=== PATIENT | male | born 1950 ===

== ENCOUNTER 2017-03-01 18:35 | Emergency (ER) | payer SELFPAY ==
[2017-03-01] MEDS ORDERED: Albuterol-Ipratrop 3 mg / 0.5 (3 ml) UD IH STA (19:05)
--- NOTE | 2017-03-01 19:10 | ED PDOC ---
Arrival/HPI - General Chief Complaint: Shortness Of Breath Time Seen by Provider: 03/01/17 18:56 - History of Present Illness Narrative History of Present Illness (Text): 66 y/o M c PMHx HTN, asthma p/w dyspnea x 4 days. Patient recently flew from [facility] and the day after arrival, began having cough and congestion. He was seen by Dr. Toledo who started patient on Azithromycin and albuterol nebulizer but it did not improve so medications were discontinued. The patient began having shortness of breath the next day, prompting his visit to ED. Patient with subjective fever. Cough is productive of small amount of white sputum. Pain in midchest, sharp, only when coughing. Deep breath causes coughing. Earlier today, patient also had coughing fit, attempted to stand up, and lost consciousness shortly. Patient has had syncope in past. Denies leg swelling, abdominal pain. Past Medical History - Travel History If Yes, travel location?: [place], [place] Family/Social History Family/Social History: No Known Family HX Allergies/Home Meds Allergies/Adverse Reactions: Allergies No Known Allergies Allergy (Verified 03/01/17 18:43) Review of Systems - Physician Review All systems were reviewed & negative as marked: Yes - Review of Systems Gastrointestinal: absent: Abdominal Pain, Vomiting Neurological: absent: Headache Physical Exam - Physical Exam Narrative Physical Exam (Text): Gen: NAD Head: NC/AT Eyes: EOMI ENT: MMM Neck: Supple Chest: No tenderness Heart: Regular rate Lungs: CTA b/l. Pulse oximetry 92-94% on room air. Abdomen: Soft, nontender Extremities: No swelling or tenderness Skin: No rash Neuro: Alert, no focal deficit Vital Signs Temp Pulse Resp BP Pulse Ox 03/01/17 18:43 100.3 F H 76 16 142/81 97 Medical Decision Making ED Course and Treatment: Differential of dyspnea includes influenza, other viral illness, PNA, asthma exacerbation, PE. Plan: Influenza swab, duoneb treatment, CXR, CTA. EKG NSR 76 bpm, no ST/T wave changes. 03/01/17 19:52 Pending all results. Will sign out to ED night team at change of shift. - RAD Interpretation Radiology Orders: 03/01/17 19:05 ANGIO CHEST PE PROTOCOL [CT] Stat - Medication Orders Current Medication Orders: Discontinued Medications Albuterol/Ipratropium (Duoneb 3 Mg/0.5 Mg (3 Ml) Ud) 3 ml IH STAT STA Stop: 03/01/17 19:06 Disposition/Present on Arrival - Present on Arrival Any Indicators Present on Arrival: No - Disposition Have Diagnosis and Disposition been Completed?: No Diagnosis: Dyspnea Disposition Time: 19:53 Condition: FAIR Forms: [employer] ([employer])
[2017-03-01] MEDS ORDERED: Albuterol-Ipratrop 3 mg / 0.5 (3 ml) UD ONE ×2 (20:06→23:19)
[2017-03-01 20:12] LABS: BASO % 0.5 % (0.0-2.0); EOS # 0.1 K/uL (0.0-0.7); EOS % 0.7 % (0.0-4.0); HEMATOCRIT 42.8 % (35.0-51.0); LYMPH # 1.3 K/uL (1.0-4.3); MEAN CELL VOLUME 88.9 fl (80.0-94.0); MEAN CORPUSCULAR HEMOGLOBIN 30.3 pg (27.0-31.0); MEAN CORPUSCULAR HGB CONC 34.1 g/dL (33.0-37.0); MEAN PLATELET VOLUME 7.6 fl (7.2-11.7); MONO # 0.9 K/uL (0.0-0.8); MONO % 10.9 % (0.0-10.0); NEUT # 5.7 K/uL (1.8-7.0); NEUT % 71.9 % (50.0-75.0); NRBC % 0.2 % (0.0-0.0); RED CELL DISTRIBUTION WIDTH 12.6 % (11.5-14.5); WHITE BLOOD COUNT 7.9 K/uL (4.8-10.8)
--- NOTE | 2017-03-01 20:27 | ED PDOC ---
- Laboratory Results Result Diagrams: 03/01/17 19:27 03/01/17 19:27 - ECG O2 Sat by Pulse Oximetry: 97 (RA) Pulse Ox Interpretation: Normal Medical Decision Making Medical Decision Making: Time: 1999 --Patient endorsed from Dr. Bronson to me. --Pending work-up and reevaluation. Time: 2024 --Tylenol 650 mg PO --Influenza: Negative Time: 2147 --Angio CT FINDINGS: Limitations: Motion artifact - mild. Pulmonary arteries: No definite pulmonary embolism. No definite emboli Aorta: Mild atherosclerotic disease. No aneurysm. Lungs: Minimal atelectasis. No consolidation. Pleural space: No significant effusion. No pneumothorax. Heart: Borderline cardiomegaly. No significant pericardial effusion. Coronary artery calcifications. Bones/joints: No acute fracture. Soft tissues: Minimal gynecomastia. Lymph nodes: No pathologically enlarged lymph nodes. Liver: Fatty infiltration. IMPRESSION: 1. No definite CT evidence of pulmonary embolism. 2. Incidental/non-acute findings are described above. Time 2220 --Toradol 30 mg IV Time: 2254 Patient is feeling better, is medically stable, and requires no further treatment in the ED at this time. Patient will be discharged home. Counseling was provided and all questions were answered regarding diagnosis and need for follow up with referred clinics. There is agreement to discharge plan. Return if symptoms persist or worsen. Clinical Impression: Viral illness Scribe~Attestation: Documented by Bettye Menendez, acting as a scribe for Gilson Oneil MD. Provider Scribe~Attestation: All medical record entries made by the Scribe were at my direction and personally dictated by me. I have reviewed the chart and agree that the record accurately reflects my personal performance of the history, physical exam, medical decision making, and the department course for this patient. I have also personally directed, reviewed, and agree with the discharge instructions and disposition. Disposition Counseled Patient/Family Regarding: Studies Performed, Diagnosis, Need For Followup - Clinical Impression Clinical Impression: Viral illness - POA Present On Arrival: None - Disposition Referrals: [facility] [Outside] [facility] [Outside] Disposition: Routine/Home Disposition Time: 22:40 Condition: IMPROVED Additional Instructions: follow up with clinic in 2 days return to the ED with any worsening or concerning symptoms Prescriptions: Albuterol HFA [Ventolin HFA 90 mcg/actuation (8 g)] 1 - 2 puff IH Q4H PRN #1 bottle PRN Reason: Wheezing Instructions: Viral Syndrome (ED) Forms: [employer] (Urdu)
[2017-03-01 20:40] LABS: ALB/GLOB RATIO 1.3 (1.0-2.1); ALKALINE PHOSPHATASE 64 U/L (38-126); ALT/SGPT 42 U/L (21-72); AST/SGOT 29 U/L (17-59); BILIRUBIN,TOTAL 0.8 mg/dl (0.2-1.3); BLOOD UREA NITROGEN 12 mg/dl (9-20); CARBON DIOXIDE 26 mmol/L (22-30); CHLORIDE 99 mmol/L (98-107); GFR AFRICAN-AMERICAN > 60; GLUCOSE,RANDOM 93 mg/dL (75-110); POTASSIUM 3.7 MMOL/L (3.6-5.0); SODIUM 134 mmol/l (132-148); TOTAL PROTEIN 7.2 G/DL (6.3-8.2)
[2017-03-01] MEDS ORDERED: Iodixanol 320 MG/ML 100 ML BOTTLE IV ONE (21:04)
[2017-03-01] MEDS ORDERED: Sodium Chloride 0.9% 50 ML IV ONE (21:05)
--- NOTE | 2017-03-01 21:48 | CT ---
EXAM: CT Angiography Chest With Intravenous Contrast CLINICAL HISTORY: 66 years old, male; Signs and symptoms; Dyspnea and shortness of breath and other: Hypoxia fever; Patient HX: Asthma HTN; Additional info: Dyspnea, hypoxia, recent flight TECHNIQUE: Axial computed tomographic angiography images of the chest with intravenous contrast using pulmonary embolism protocol. All CT scans at this facility use one or more dose reduction techniques, viz.: automated exposure control; ma/kV adjustment per patient size (including targeted exams where dose is matched to indication; i.e. head); or iterative reconstruction technique. MIP reconstructed images were created and reviewed. Coronal and sagittal reformatted images were created and reviewed. CONTRAST: 98 mL of VISIPAQUE administered intravenously. COMPARISON: No relevant prior studies available. FINDINGS: Limitations: Motion artifact - mild. Pulmonary arteries: No definite pulmonary embolism. No definite emboli Aorta: Mild atherosclerotic disease. No aneurysm. Lungs: Minimal atelectasis. No consolidation. Pleural space: No significant effusion. No pneumothorax. Heart: Borderline cardiomegaly. No significant pericardial effusion. Coronary artery calcifications. Bones/joints: No acute fracture. Soft tissues: Minimal gynecomastia. Lymph nodes: No pathologically enlarged lymph nodes. Liver: Fatty infiltration. IMPRESSION: 1. No definite CT evidence of pulmonary embolism. 2. Incidental/non-acute findings are described above.
[2017-03-01 23:18] VITALS: BP 120/63; PULSE 80; RESP 18; TEMP 98.9
[2017-03-01] MEDS ORDERED: Albuterol-Ipratrop 3 mg / 0.5 (3 ml) UD INH STA (23:20)
[2017-03-04 01:50] VITALS: O2SAT 97
== END 2017-03-01 23:43 | disposition home or self-care (01) ==
LOC: H.ER 18:35
DX: B34.9 Viral infection, unspecified (principal); I10 Essential (primary) hypertension; J45.909 Unspecified asthma, uncomplicated; R09.02 Hypoxemia
CPT/HCPCS: 71275; 80053; 82550; 82553; 84484; 85025; 87804; 94150; 94640; 99284; J1885; Q9967